=== PATIENT | female | born 1935 | race Caucasian/White ===

== ENCOUNTER 2021-09-28 16:57 | Emergency (ER) | payer MEDICARE ==
[~2021-09-28] VITALS: Ht 157.5 cm; Wt 44.9 kg
[2021-09-28 16:57] VITALS: BP_SYST 127
[2021-09-28] MEDS ORDERED: ASPIRIN 325 MG TABLET PO ONE (17:45)
[2021-09-28 17:54] LABS: PROTHROMBIN TIME 10.1 SECS (9.5-12.5)
[2021-09-28 18:03] LABS: ALANINE AMINOTRANSFERASE 15 U/L (12-78); ALBUMIN 3.6 g/dL (3.4-4.8); ASPARTATE AMINOTRANSFERASE 14 U/L (10-37); CALCIUM 10.2 mg/dL (8.4-11.0); GLUCOSE 143 mg/dL (70-99); TOTAL BILIRUBIN 0.2 mg/dL (0.0-1.0); UREA NITROGEN, BLOOD 22 mg/dL (8-21)
[2021-09-28 18:08] LABS: ANION GAP 8 (5-15); BASOPHILS # (AUTO) 0.1 K/uL (0.0-0.2); CHLORIDE 95 mmol/L (98-107); EOSINOPHILS # (AUTO) 0.1 K/uL (0.0-0.4); EOSINOPHILS % (AUTO) 2.4 % (0.0-4.0); HEMATOCRIT 29.6 % (36-48); HEMOGLOBIN 10.1 g/dL (12.0-16.0); LYMPHOCYTES # (AUTO) 2.5 K/uL (1.0-5.5); LYMPHOCYTES % (AUTO) 44.6 % (20.5-51.5); MEAN CORPUSCULAR HEMOGLOBIN 32 pg (27-31); MEAN CORPUSCULAR HGB CONC 34 % (32-36); MEAN CORPUSCULAR VOLUME 95 fL (79.0-98.0); MONOCYTES # (AUTO) 0.5 K/uL (0.0-1.0); MONOCYTES % (AUTO) 8.9 % (1.7-9.3); NEUTROPHILS # (AUTO) 2.5 K/uL (1.8-7.7); NEUTROPHILS % (AUTO) 43.1 % (40.0-70.0); PLATELET COUNT (AUTO) 234 K/uL (130-430); POTASSIUM 4.6 mmol/L (3.5-5.1); RED BLOOD CELL COUNT(AUTO) 3.12 MIL/uL (4.2-6.2); RED CELL DISTRIBUTION WIDTH 14.1 % (9.0-15.0); SODIUM SERUM 130 mmol/L (136-145); WHITE BLOOD COUNT (AUTO) 5.7 K/uL (4.8-10.8)
[2021-09-28] MEDS ORDERED: NACL 0.9% 1,000 ML IV ONE ×2 (18:30→19:45)
[2021-09-28 18:34] LABS: BILIRUBIN,URINE NEGATIVE (NEGATIVE); BLOOD, URINE NEGATIVE (NEGATIVE); COLOR,URINE YELLOW (YELLOW); GLUCOSE,URINE NEGATIVE (NEGATIVE); KETONES,URINE NEGATIVE (NEGATIVE); LEUKOCYTE ESTERASE ,URINE NEGATIVE (NEGATIVE); NITRITE, URINE NEGATIVE (NEGATIVE); PH,URINE 7.5 (5.0-8.0); PROTEIN URINE NEGATIVE (NEGATIVE); UROBILINOGEN,URINE 0.2 (0.2-1.0)
[2021-09-28 19:14] LABS: CLARITY/URINE SLIGHTLY HAZY (CLEAR)
[2021-09-28 19:16] LABS: BARBITURATE, URINE NEGATIVE (NEG <=200); METHAMPHETAMINES SCREEN,URINE NEGATIVE (NEG <=500); URINE AMPHETAMINE NEGATIVE (NEG <=500)
[2021-09-28 19:17] LABS: BENZODIAZEPINE, URINE NEGATIVE (NEG <=150); CANNABINOID, URINE NEGATIVE (NEG <=50); COCAINE, URINE NEGATIVE (NEG <=150); OPIATE, URINE NEGATIVE (NEG <=100); PHENCYCLIDINE SCREEN,URINE NEGATIVE (NEG <=25); UR TRICYCLIC ANTIDEPRESSANTS NEGATIVE (NEG <=300); URINE METHADONE NEGATIVE (NEG <=200); URINE OXYCODONE SCREEN NEGATIVE (NEG <=100); URINE PROPOXYPHENE SCREEN NEGATIVE (NEG <=300)
[2021-09-28] MEDS ORDERED: IOHEXOL 350 mgI/mL, 150 ML INFUS..BTL IV ONE (20:04)
[2021-09-28 20:18] LABS: THYROID STIMULATING HORMONE 2.33 uIu/mL (0.36-3.74)
[2021-09-29 00:40] VITALS: BP_SYST 159
== END 2021-09-29 01:00 | disposition short-term general hospital (02) ==
LOC: SED 16:57
DX: U07.1 COVID-19 (principal); G45.9 Transient cerebral ischemic attack, unspecified; E87.1 Hypo-osmolality and hyponatremia; E87.8 Other disorders of electrolyte and fluid balance, not elsewhere classified; D50.9 Iron deficiency anemia, unspecified; E11.9 Type 2 diabetes mellitus without complications
CPT/HCPCS: 36415; 70450; 70496; 70498; 71045; 76376; 80048; 80053; 80061; 80307; 81003; 83036; 84443; 84484; 85025; 85610; 85730; 86886; 86900; 86901; 87426; 93005; 96360; 96361; 99285; J7030; Q9967